=== PATIENT | female | born 1960 | race Caucasian/White ===

== ENCOUNTER 2018-12-26 02:34 | Inpatient (IN) ==
[2018-12-20 14:41] LABS: URINE SOURCE CLEAN CATCH
--- NOTE | 2018-12-20 14:47 | EKG Report ---
Test Performed on : 12/20/2018 2:15:04 PM Test Reason : PAT Blood Pressure : / mmHG Vent. Rate : 052 BPM Atrial Rate : 052 BPM P-R Int : 128 ms QRS Dur : 088 ms QT Int : 426 ms P-R-T Axes : 022 019 015 degrees QTc Int : 396 ms Sinus bradycardia. Otherwise normal ECG When compared with ECG of 09-DEC-2014 18:25, Vent. rate has decreased BY 38 BPM QT has shortened Confirmed by Angelic PARKS, Orlando Givens ([id number]) on 12/20/2018 4:20:27 PM
[2018-12-20 14:48] LABS: BASO# 0.03 X1000 (0.0-0.2); BASO% 0.5 % (0.0-0.8); BILIRUBIN URINE NEGATIVE (NEGATIVE); BLOOD URINE NEGATIVE (NEGATIVE); COLOR YELLOW; EOS# 0.19 X1000 (0.0-0.7); EOS% 3.1 % (0.0-10.0); GLUCOSE URINE NEGATIVE (NEGATIVE); HEMATOCRIT 41.6 % (37.0-47.0); HEMOGLOBIN 13.9 g/dL (12.0-16.0); KETONE URINE NEGATIVE (NEGATIVE); LEUKOCYTES URINE MODERATE (NEGATIVE); LYMPH# 2.33 X1000 (1.2-3.4); LYMPH% 37.8 % (20.5-51.1); MCH 29.4 PG (27-31); MCHC 33.4 g/dL (33-37); MCV 87.9 FL (81-99); MONO% 8.1 % (1.7-9.3); MPV 10.1 FL (7.4-10.4); NEUT# 3.12 X1000 (1.4-6.5); NEUT% 50.5 % (42.2-75.2); NITRITE URINE NEGATIVE (NEGATIVE); PH URINE 6.5; PLT 281 X1000 (130-400); PROTEIN URINE NEGATIVE (NEGATIVE); RBC 4.73 XMIL (4.2-5.4); RDW 12.6 % (11.5-14.5); SP GRAVITY URINE 1.006; TURBIDITY URINE HAZY (CLEAR); UROBILINOGEN URINE NORMAL (NORMAL); WBC 6.17 X1000 (4.8-10.8)
[2018-12-20 14:52] LABS: INR 0.84; PROTIME 12.2 Seconds (11.0-16.0)
[2018-12-20 14:53] LABS: PTT 33.9 Seconds (22.3-41.8)
[2018-12-20 14:56] LABS: UR EPITHELIAL CELLS >10 /HPF (<10); URINE BACTERIA 1+ /HPF; URINE RBC TNTC /HPF (<10)
[2018-12-20 15:02] LABS: URINE CASTS NONE SEEN; URINE CRYSTALS CA OXALATE PRESENT; URINE SMALL ROUND CELLS NONE SEEN; URINE YEAST NONE SEEN
[2018-12-20 15:04] LABS: AGAP 11; BUN 9 mg/dL (8-22); CALCIUM 9.1 mg/dL (8.8-10.2); CHLORIDE 105 mmol/L (98-107); COSMO 283; CREATININE 0.8 mg/dL (0.5-0.9); ESTIMATED GFR > 60; GLUCOSE 95 mg/dL (70-104); POTASSIUM 3.7 mmol/L (3.5-5.1); SODIUM 143 mmol/L (136-145); TCO2 27 mmol/L (25-35)
[2018-12-26] MEDS ORDERED: REGLAN ONE (06:32)
[2018-12-26] MEDS ORDERED: COLACE ONE (06:32)
[2018-12-26] MEDS ORDERED: PEPCID ONE (06:32)
[2018-12-26] MEDS ORDERED: LR 1,000 ML ONE (06:33)
[2018-12-26] MEDS ORDERED: LYRICA ONE (06:33)
[2018-12-26] MEDS ORDERED: KEFZOL 1 GM/D5W 2 GM/100 ML IVPB ONE (06:33)
[2018-12-26] MEDS ORDERED: CELEBREX ONE (06:34)
[2018-12-26] MEDS ORDERED: QUELICIN (DOSE) ONE (06:53)
[2018-12-26] MEDS ORDERED: XYLOCAINE-MPF 2% ONE (06:53)
[2018-12-26] MEDS ORDERED: ROBINUL ONE ×2 (06:53→08:25)
[2018-12-26] MEDS ORDERED: DIPRIVAN 1% ONE (06:53)
[2018-12-26] MEDS ORDERED: DURAMORPH ONE (07:05)
[2018-12-26] MEDS ORDERED: MARCAINE 0.25% PF ONE (07:05)
[2018-12-26] MEDS ORDERED: TORADOL ONE ×2 (07:05→07:34)
[2018-12-26] MEDS ORDERED: SODIUM CHLORIDE 0.9% ONE (07:06)
[2018-12-26] MEDS ORDERED: NEOSPORIN G.U. IRRIGANT ONE (07:06)
[2018-12-26] MEDS ORDERED: CYKLOKAPRON 1,000 MG/NS 1,000 MG/100 ML IVPB ONE (07:06)
[2018-12-26] MEDS ORDERED: EXPAREL 1.3% ONE (07:06)
[2018-12-26] MEDS ORDERED: OFIRMEV 1000 MG/ISOTONIC SOLN 1,000 MG/100 ML BOTTLE ONE (07:24)
[2018-12-26] MEDS ORDERED: DECADRON ONE (07:24)
[2018-12-26] MEDS ORDERED: ZOFRAN ONE (07:34)
[2018-12-26] MEDS ORDERED: FENTANYL ONE (08:00)
[2018-12-26 08:20] LABS: URINE SOURCE CATH
[2018-12-26 08:25] LABS: BILIRUBIN URINE NEGATIVE (NEGATIVE); BLOOD URINE NEGATIVE (NEGATIVE); COLOR YELLOW; GLUCOSE URINE NEGATIVE (NEGATIVE); KETONE URINE NEGATIVE (NEGATIVE); LEUKOCYTES URINE NEGATIVE (NEGATIVE); NITRITE URINE NEGATIVE (NEGATIVE); PH URINE 6.5; PROTEIN URINE NEGATIVE (NEGATIVE); SP GRAVITY URINE 1.013; TURBIDITY URINE CLEAR (CLEAR); UROBILINOGEN URINE NORMAL (NORMAL)
[2018-12-26] MEDS ORDERED: NEOSTIGMINE ONE (08:25)
[2018-12-26 08:26] LABS: UR EPITHELIAL CELLS <10 /HPF (<10); URINE BACTERIA NEGATIVE /HPF; URINE RBC <10 /HPF (<10); URINE WBC <10 /HPF (<10)
[2018-12-26] MEDS ORDERED: ZEMURON ONE (08:30)
[2018-12-26] MEDS ORDERED: OXY IR ONE (09:34)
[2018-12-26] MEDS ORDERED: NS 1,000 ML ONE (09:34)
[2018-12-26] MEDS ORDERED: MORPHINE IV PRN ×3 (10:00)
[2018-12-26] MEDS ORDERED: ZOFRAN PO PRN (10:00)
--- NOTE | 2018-12-26 10:41 | Diag Imaging Result Doc PS360 ---
SHOULDER-RIGHT - 12/26/2018 INDICATION: post op total shoulder TECHNIQUE: One view COMPARISON: 03/20/2018 FINDINGS: There has been right total shoulder arthroplasty. Alignment is anatomic. No hardware fracture or loosening. IMPRESSION: No complication. Electronically signed by Sheldon Welch 12/26/2018 10:39 AM
[2018-12-26] MEDS: OXY IR PO PRN ×3 (13:09→23:26)
[2018-12-26] MEDS: NS 1,000 ML IV SCH ×2 (13:10→23:31)
[2018-12-26] MEDS ORDERED: CYKLOKAPRON 1,000 MG in NS 100 ML IV ONE (13:40)
[2018-12-26] MEDS: KEFZOL 2 GM/D5W 2 GM/50 ML IVPB IV SCH ×2 (15:17→23:28)
[2018-12-26] MEDS: TYLENOL PO SCH ×2 (15:19→20:41)
[2018-12-26] MEDS: COLACE PO SCH (20:40)
[2018-12-27] MEDS: TYLENOL PO SCH ×2 (02:43→08:09)
[2018-12-27] MEDS: OXY IR PO PRN ×2 (02:47→08:07)
[2018-12-27 06:29] LABS: HEMATOCRIT 34.8 % (37.0-47.0); HEMOGLOBIN 11.3 g/dL (12.0-16.0)
[2018-12-27 06:41] LABS: AGAP 12; BUN 8 mg/dL (8-22); CALCIUM 8.3 mg/dL (8.8-10.2); CHLORIDE 109 mmol/L (98-107); COSMO 289; CREATININE 0.7 mg/dL (0.5-0.9); ESTIMATED GFR > 60; GLUCOSE 139 mg/dL (70-104); POTASSIUM 3.9 mmol/L (3.5-5.1); SODIUM 145 mmol/L (136-145); TCO2 24 mmol/L (25-35)
[2018-12-27 07:38] VITALS: BP 152/73
--- NOTE | 2018-12-27 07:56 | OPERATIVE NOTE ---
PROCEDURE DATE: 12/26/2018 PREOPERATIVE DIAGNOSIS: Right glenohumeral arthritis. POSTOPERATIVE DIAGNOSIS: Right glenohumeral arthritis. PROCEDURE PERFORMED: Right reverse total shoulder arthroplasty with DePuy Delta Xtend size 10 press-fit stem, a 38+ 6 humeral cup, a 38 eccentric Glenosphere, and a standard Metaglene. SURGEON: Xander Logan M.D. DISPATCHER SERVICE CHIEF: MARSHA Juárez. SECOND BUSINESS OFFICE MANAGER: MARSHA Nolen. ANESTHESIA: General. IV FLUIDS: 1200 mL of lactated Ringer. ESTIMATED BLOOD LOSS: 100 mL. COMPLICATIONS: None. INDICATION: The patient is a 58-year-old female with chronic history of worsening pain and discomfort in her right shoulder. Radiographic studies revealed evidence of degenerative glenohumeral arthritis, and a recommendation to proceed with arthroplasty was offered. Risks and benefits of surgery were explained, including the risks of anesthesia, , bleeding, infection, failure to relieve pain, postoperative stiffness, nerve injury, blood clots, and other imponderables. All questions were answered. The patient and family wished to proceed with surgery. DESCRIPTION OF PROCEDURE: The patient was taken to the operating room and placed supine on the operating table. Once adequate anesthesia was obtained, the patient was placed in semi-[place]incoln beach-chair position. The right shoulder was subsequently prepped and draped in the usual sterile fashion. A standard deltopectoral incision was made with a skin knife. Medial and lateral skin envelopes were developed. The deltopectoral interval was then developed, and Eaton retractor was placed. Retraction of the conjoint tendon was performed as well. The subscapularis tendon was then identified, and a stay suture was placed approximately 1 cm medial to the insertion. The subscapularis tendon was released. The shoulder was then dislocated anteriorly. The patient had significant glenoid arthritis and some thinning of the superior aspect of the rotator cuff, and given this finding, we did proceed with a reverse total shoulder arthroplasty. A starting reamer was passed in the intramedullary canal. This was followed by sequential reaming up to a size 10. An intramedullary guide was placed in position in approximately 15 degrees of retroversion, and the proximal humeral cutting block was pinned in position. The humeral head was then resected. A protective disk was then placed after removal of the inferior osteophyte with a rongeur. Attention was then turned to the glenoid. The patient did have significant posterior glenoid wear. Circumferential dissection was performed with a deep knife. After this had been performed, a guide was placed in position. Guide pin was then placed. The reaming was then conducted somewhat eccentrically. After adequate reaming had been conducted, the central hole was dilated. The wound was copiously irrigated with antibiotic pulsatile lavage. A standard Metaglene was then impacted in position. Two locking screws were placed, and one nonlocking screw was placed. It had good purchase. The wound was copiously irrigated. A 38 eccentric Glenosphere was then placed with eccentricity placed inferiorly. Attention was then turned to the proximal humerus, where an intramedullary guide was placed in position and the proximal humerus was reamed. A size 10 Delta Xtend press-fit stem was then impacted and had good fit. Trialing with the cup size was performed. A 38+ 6 humeral cup was deemed to be the correct size. The trial cup was removed. Copious irrigation was then performed once again. A size 38+ 6 humeral cup was then impacted. The shoulder was reduced, carried through range of motion. It had excellent stability and range of motion. The wound was copiously irrigated. The #2 FiberWire was used to repair the subscapularis tendon. Remaining Exparel was placed in the deep soft tissue as well as subcutaneous tissue. The wound was copiously irrigated once again. A 2-0 Vicryl was then used to repair the subcutaneous tissue, followed by running 2-0 Prolene. Benzoin and Steri-Strips were applied. Adaptic, sterile 4 x 4's, ABD pad, and tape were applied to the right shoulder, followed by a shoulder immobilizer. All counts were correct. The patient tolerated the procedure well. cc: Xander Logan MD
[2018-12-27] MEDS: COLACE PO SCH (08:09)
--- NOTE | 2018-12-27 12:31 | ORTHOPAEDICS PROGRESS NOTE ---
DATE: 12/27/2018 SUBJECTIVE: The patient is a pleasant 58-year-old female who is 1 day status post right reverse total shoulder arthroplasty. She is currently resting comfortably. OBJECTIVE: On physical examination of the patient's right upper extremity, her dressing is intact. She is neurovascularly intact distally. She has good director of casework services strength. Her compartments were soft. LABORATORIES: Pending. IMPRESSION: Postoperative day #1 status post right reverse total shoulder arthroplasty. PLAN: At this point, we will change her dressing and plan on discharging home today. We will arrange for outpatient physical therapy. Patient will follow up on 01/08/2019. cc: Xander Logan MD
== END 2018-12-27 10:09 | disposition home or self-care (01) | DRG 483 ==
LOC: SURHOLD 02:34 → 4N 07:49
PROVIDERS: ADMIT Orthopaedic Surgery Adult Reconstructive Orthopaedic Surgery; ATTEND Orthopaedic Surgery Adult Reconstructive Orthopaedic Surgery
CPT/HCPCS: 73030; 80048; 81001; 85014; 85018; 85025; 85610; 85730; 86850; 86900; 86901; 88305; 88311; 93005; 93010; 94761; 94799; 97110; 97162; 97530; A9270; C1713; C9290; J0131; J0330; J0690; J1100; J1885; J2274; J2275; J2405; J3010; J7030; J7120; Q9974; S0020